=== PATIENT | female | born 1995 | race Caucasian/White ===

== ENCOUNTER 2022-10-25 18:15 | Emergency (ER) | payer BC, OTHER ==
[2022-10-25] MEDS ORDERED: Sodium Chloride 0.9% 1,000 ML IV ONE (18:36)
[2022-10-25] MEDS ORDERED: Sodium Chloride 0.9% 10 ML Syringe FLUSH PRN (18:36)
[2022-10-25] MEDS ORDERED: HYDROmorphone 1 MG/ML Syringe IVPUSH ONE (18:36)
[2022-10-25] MEDS ORDERED: Ondansetron 4 MG/2 ML SDV IVPUSH ONE (18:36)
[2022-10-25 19:03] LABS: BASOPHILS ABSOLUTE AUTO 0.01 K/mm3 (0.01-0.08); BASOPHILS PERCENT AUTO 0.2 % (0.1-1.2); EOSINOPHILS ABSOLUTE AUTO 0.01 K/mm3 (0.04-0.36); EOSINOPHILS PERCENT AUTO 0.2 (0.7-5.8); HEMATOCRIT 36.9 % (34.1-44.9); HEMOGLOBIN 12.4 gm/dl (11.2-15.7); LYMPHOCYTES ABSOLUTE AUTO 0.62 K/mm3 (1.18-3.74); LYMPHOCYTES PERCENT AUTO 10.1 % (19.3-51.7); MEAN CORPUSCULAR HEMOGLOBIN 28.2 pg (25.6-32.2); MEAN CORPUSCULAR HGB CONC 33.6 g/dl (32.2-35.5); MEAN CORPUSCULAR VOLUME 84.1 fl (79.4-94.8); MEAN PLATELET VOLUME 9.6 fl (9.4-12.3); MONOCYTES ABSOLUTE AUTO 0.22 K/mm3 (0.24-0.36); MONOCYTES PERCENT AUTO 3.6 % (4.7-12.5); NEUTROPHILS ABSOLUTE AUTO 5.26 K/mm3 (1.56-6.13); NEUTROPHILS PERCENT AUTO 85.9 % (34.0-71.1); PLATELET COUNT,PLT 294 K/mm3 (182-369); RED BLOOD CELL COUNT 4.39 M/mm3 (3.98-5.22); WHITE BLOOD CELL COUNT,WBC 6.12 K/mm3 (3.98-10.04)
[2022-10-25] MEDS ORDERED: fentaNYL 100 MCG/2 ML SDV IVPUSH ONE (19:15)
[2022-10-25] MEDS ORDERED: Hyoscyamine 0.125 MG Tab.SL SL ONE (19:15)
[2022-10-25 19:25] LABS: A/G RATIO 0.8 (1-2); ALBUMIN 3.8 g/dl (3.4-5.0); ANION GAP 16.7 (5-15); BILIRUBIN TOTAL 0.7 mg/dL (0.2-1.0); CALCIUM 9.4 mg/dL (8.5-10.1); CREATININE 1.1 mg/dL (0.55-1.02); EST CRCL DRUG DOSING (CG) 65.16 mL/min; MAGNESIUM 1.7 mg/dL (1.8-2.4); POTASSIUM,K 3.7 mEq/L (3.5-5.1); PROTEIN TOTAL,TP 8.6 g/dl (6.4-8.2)
[2022-10-25] MEDS ORDERED: Iopamidol 612 MG/ML 100 ML Bottle IVPUSH ONE (20:02)
== END 2022-10-25 22:45 | disposition home or self-care (01) ==
LOC: JD.ED 18:15
DX: K80.10 Calculus of gallbladder with chronic cholecystitis without obstruction (principal); Z79.899 Other long term (current) drug therapy; Z88.1 Allergy status to other antibiotic agents
CPT/HCPCS: 36415; 74177; 76705; 80053; 82977; 83690; 83735; 84703; 85025; 86140; 96361; 96374; 96375; 99284; A9270; J1170; J2405; J3490; J7030; Q9967